=== PATIENT | female | born 1975 | race Caucasian/White ===

== ENCOUNTER 2024-10-25 11:09 | Emergency (ER) | payer BC, SELFPAY ==
[~2024-10-25] VITALS: Ht 154.9 cm; Wt 57.1 kg
[2024-10-25] MEDS ORDERED: cefTRIAXone SOD 1 GM in DEXTROSE 5% (D5W) ADV/MINI-BAG 50 ML IV ONE (11:15)
[2024-10-25] MEDS: LIDOCAINE 2% 5 ML JELLY UROJET TOP ONE (11:15)
[2024-10-25] MEDS: OCTREOTIDE ACETATE 100MCG/ML VIAL **IV ADMINISTRATION ONLY IV ONE (11:28)
[2024-10-25] MEDS: ONDANSETRON 4MG 2ML VIAL IV ONE ×2 (11:28→11:56)
[2024-10-25] MEDS: PANTOPRAZOLE 40MG VIAL IV ONE (11:28)
[2024-10-25 11:29] LABS: VENOUS BASE EXCESS -4.7 (-2.0-2.0); VENOUS HCO3 20.0 MMOL/L (23.0-27.0); VENOUS O2 SATURATION 86.9 % (60.0-80.0); VENOUS PARTIAL PRESSURE CO2 33.9 mmHg (38.0-50.0); VENOUS PARTIAL PRESSURE O2 61.3 mmHg (30.0-50.0); VENOUS PH 7.388 UNITS (7.330-7.430); VENOUS STANDARD HCO3 20.4 MMOL/L; VENOUS TOTAL CO2 21.0 MMOL/L (24.0-28.0)
[2024-10-25] MEDS ORDERED: ISOVUE-370 76% 100 ML VIAL As Ordered ONE (11:32)
[2024-10-25] MEDS: PANTOPRAZOLE SODIUM 40 MG in DEXTROSE 5% (D5W) ADV/MINI-BAG 50 ML IV SCH (11:36)
[2024-10-25 11:50] LABS: INR 2.68
[2024-10-25 11:55] LABS: BASO # 0.0 10^3/uL (0.0-0.2); BASO % 0.0 % (0.0-1.0); EOS # 0.0 10^3/uL (0.0-0.5); EOS % 0.0 % (0.0-3.0); LYMPH # 0.9 10^3/uL (1.5-5.0); LYMPH % 7.8 % (24.0-44.0); MONO # 0.9 10^3/uL (0.0-0.8); MONO % 7.6 % (2.0-8.0); NEUTROPHILS # 9.8 10^3/uL (1.5-8.5); NEUTROPHILS % 83.3 % (36.0-66.0)
[2024-10-25] MEDS ORDERED: CALCIUM GLUCONATE 1,000 MG in DEXTROSE 5% (D5W) MINI-BAG PLU 100 ML IV ONE ×3 (11:55→13:10)
[2024-10-25] MEDS: OCTREOTIDE ACETATE 1,200 MCG in NS 238.8 ML IV SCH (11:55)
[2024-10-25 12:04] LABS: CK-MB VALUE MASS < 1.0 NG/ML (<3.6); ETHYL ALCOHOL (ETHANOL) < 0.003 % (0.000-0.010)
[2024-10-25 12:07] LABS: PLATELET COUNT, AUTOMATED 95 10^3/uL (150-450)
[2024-10-25] MEDS ORDERED: CALCIUM GLUCONATE 1,000 MG/10 ML VIAL As Ordered ONE (12:16)
[2024-10-25] MEDS: CALCIUM GLUCONATE 1,000 MG/10 ML VIAL IV ONE (12:20)
[2024-10-25 12:25] LABS: ALT/SGPT 14 U/L (7.0-40); AST/SGOT 46 U/L (<34); CALCIUM LEVEL 6.3 MG/DL (8.5-10.1); CARBON DIOXIDE LEVEL 20 MMOL/L (20-31); CHLORIDE LEVEL 89 MMOL/L (98-107); CPK CREATINE PHOSPHOKINASE 37 U/L (34-145); CREATININE FOR GFR 0.67 MG/DL (0.55-1.30); GLOMERULAR FILTRATION RATE > 90.0 (>58); POTASSIUM SERUM 3.6 MMOL/L (3.5-5.1); SODIUM LEVEL 126 MMOL/L (136-145)
[2024-10-25 12:48] VITALS: BP 117/73; TEMP 98.2; O2SAT 100
== END 2024-10-25 12:51 | disposition short-term general hospital (02) ==
LOC: M ED 11:09
DX: K92.2 Gastrointestinal hemorrhage, unspecified (principal); I85.01 Esophageal varices with bleeding; I45.81 Long QT syndrome; G35 Multiple sclerosis; F17.200 Nicotine dependence, unspecified, uncomplicated; F10.10 Alcohol abuse, uncomplicated; Z88.2 Allergy status to sulfonamides
CPT/HCPCS: 36430; 36556; 51702; 71045; 80047; 80053; 82077; 82248; 82550; 82553; 82803; 83605; 83690; 84484; 85025; 85049; 85055; 85610; 85730; 86850; 86900; 86901; 86920; 93005; 96365; 96366; 96367; 96375; 96376; 99291; 99292; J2354; J2405; J2470; P9016; P9059